=== PATIENT | female | born 1980 | race Caucasian/White ===

== ENCOUNTER 2016-12-10 13:54 | Emergency (ER) | payer OTHER, MEDICAID | END 2016-12-10 14:04 | disposition left against medical advice (07) | DX: Z53.21 Procedure and treatment not carried out due to patient leaving prior to being seen by health care provider (principal) ==

== ENCOUNTER 2016-12-10 14:33 | Emergency (ER) | payer OTHER, MEDICAID ==
[2016-12-10 14:49] VITALS: BP 112/81; PULSE 80; RESP 14; TEMP 98.6; O2SAT 94
--- NOTE | 2016-12-10 15:26 | EDPHY ---
H & P Stated Complaint: Possible DVT Time Seen by Provider: 12/10/16 14:51 HPI/ROS: CHIEF COMPLAINT: Left leg swelling and purple when standing HISTORY OF PRESENT ILLNESS: Patient is a 36-year-old female who is well known to the department and is a very difficult patient. She is requesting an ultrasound of her left leg. She had hip surgery in left hip 3 weeks ago and was concerned today when she noticed some swelling and purple discoloration when she stood up. It resolved when she lies down. She also had some tingling. No hip pain. No back pain. No bowel or bladder abnormalities. She initially refused to triage. She refused vitals and the nursing examination to until an MD was in the room. When I entered the room she accused me immediately of not allowing her to go to the bathroom and asking if she me if I wanted her to pee in the bed. She would not answer my questions even when I placed them in writing. She repeated over and over how she was documenting everything for her family. REVIEW OF SYSTEMS: Constitutional: denies: chills, fever, recent illness, recent injury EENTM: denies: blurred vision, double vision, nose congestion Respiratory: denies: cough, shortness of breath Cardiac: denies: chest pain, irregular heart rate, lightheadedness, palpitations Gastrointestinal/Abdominal: denies: abdominal pain, diarrhea, nausea, vomiting, blood streaked stools Genitourinary: denies: dysuria, frequency, hematuria, pain Musculoskeletal: See HPI Skin: denies: lesions, rash, jaundice, bruising Neurological: denies: headache, numbness, paresthesia, tingling, dizziness, weakness Hematologic/Lymphatic: denies: blood clots, easy bleeding, easy bruising Immunologic/allergic: denies: HIV/AIDS, transplant EXAM: GENERAL: Well-appearing, well-nourished and in no acute distress. HEAD: Atraumatic, normocephalic. EYES: Pupils equal round and reactive to light, extraocular movements intact, sclera anicteric, conjunctiva are normal. ENT: TMs normal, nares patent, oropharynx clear without exudates. Moist mucous membranes. NECK: Normal range of motion, supple without lymphadenopathy or JVD. LUNGS: Breath sounds clear to auscultation bilaterally and equal. No wheezes rales or rhonchi. HEART: Regular rate and rhythm without murmurs, rubs or gallops. ABDOMEN: Soft, nontender, normoactive bowel sounds. No guarding, no rebound. No masses appreciated. BACK: No CVA tenderness, no spinal tenderness, step-offs or deformities EXTREMITIES: Normal range of motion, no pitting or edema. No clubbing or cyanosis. NEUROLOGICAL: Cranial nerves II through XII grossly intact. Normal speech, normal gait. 5/5 strength, normal movement in all extremities, normal sensation PSYCH: Normal mood, normal affect. SKIN: Warm, dry, normal turgor, no visible rashes or lesions. Source: Patient Exam Limitations: No limitations - Personal History LMP (Females 10-55): 1-7 Days Ago Current Tetanus/Diphtheria Vaccine: Yes Current Tetanus Diphtheria and Acellular Pertussis (TDAP): Yes Tetanus Vaccine Date: 05/2012 - Medical/Surgical History Hx Asthma: Yes Hx Chronic Respiratory Disease: No Hx Diabetes: No Hx Cardiac Disease: No Hx Renal Disease: No Hx Cirrhosis: No Hx Alcoholism: No Hx HIV/AIDS: No Hx Splenectomy or Spleen Trauma: No Other PMH: REPORTS CHEMOTHERAPY, REPORTS HEARING IMPAIRMENT. 1 previous laparoscopic surgery for "endometrioma" without endometriosis. Negative cholecystectomy. History of ovarian cysts. "eye disease"; PTSD. anxiety, anemia. PSH: ankle sx 2001, ovarian cyst sx 2007 - Family History Significant Family History: Hypertension - Social History Smoking Status: Never smoked Alcohol Use: Sober Drug Use: None Constitutional: Initial Vital Signs Temperature (C) 37.0 C 12/10/16 14:33 Heart Rate 80 12/10/16 14:33 Respiratory Rate 14 12/10/16 14:33 Blood Pressure 112/81 H 12/10/16 14:33 O2 Sat (%) 94 12/10/16 14:33 O2 Delivery Mode Room Air Allergies/Adverse Reactions: telithromycin [From KETEK] Allergy (Mild, Verified 04/22/16 21:03) Itching azithromycin [From Zithromax] Allergy (Verified 04/22/16 21:03) baclofen Allergy (Verified 04/22/16 21:05) carbamazepine [Carbamazepine] Allergy (Verified 04/22/16 21:03) fluvoxamine maleate [From Luvox] Allergy (Verified 04/22/16 21:05) latex [Latex] Allergy (Verified 04/22/16 21:03) Macrolide Antibiotics Allergy (Verified 04/22/16 21:03) promethazine HCl [From Phenergan] Allergy (Verified 04/22/16 21:03) ANTI PSYCHOTICS Allergy (Uncoded 04/22/16 21:05) TRILOPHAN Allergy (Uncoded 04/22/16 21:05) Home Medications: Medication Instructions Recorded Vistaril 09/30/15 Medical Decision Making - Diagnostics Imaging: Study: Ultrasound of the: Left lower extremity Indication: swelling and discoloration Results: US scan of the left lower extremity was obtained. The results of the study are negative for DVT. The study was read by the radiologist, Dr. Bry Valdez. I viewed the images myself on the PACS system. ED Course/Re-evaluation: The patient has been very difficult. She would not allow me to completely examine her leg but I do not see any swelling or edema. She states that her doctor told her to come and get an ultrasound. She is very combative and repeatedly wants to yell at us about how she was not allowed to go to the bathroom. She initially refused drop forge operator when she entered the room as well but after some further conversation through writing she agreed. Security guards have been called to her room already 3 times. She is extremely belligerent and demeaning to staff. Interestingly the patient was able to converse normally with the electrophysiology tech without any difficulty hearing and without writing. 3:40 p.m. the patient began throwing things across the room while interacting with nursing staff. Were able to calm her down. 3:50 p.m. we discussed the ultrasound results. The patient again was very confrontational. She seemed relieved that the results were negative but wanted to know why her leg was Swollen and discolored. Currently there is no swelling or discoloration. she will not allow further examination so it is impossible to tell. Suspect that it is somewhat positional. Also in the pictures she showed me she had a tight carrington wrap around her leg that seem to be contributing to the discoloration in her foot. It did not look edematous. I recommended that she follow up with her orthopedist who performed the surgery. She has normal coloration and pulses currently. 4:02 p.m. the patient continued to be aggressive and verbally abusive to staff and myself. She will not allow further workup or treatment. Her vital signs are stable. She does not have any obvious emergent condition and will not allow further evaluation. At this point we had security risk analyst her out. Differential Diagnosis: Partial list of the Differential diagnosis considered include but were not limited to; DVT, hematoma, compression dressing complication and although unlikely based on the history and physical exam, I also considered infection, obstruction, ischemia. Departure - Departure Disposition: Home, Routine, Self-Care Clinical Impression: Leg swelling Condition: Good Instructions: Leg Edema (ED) Referrals: Patient,NotPresent [Primary Care Provider] - As per Instructions
== END 2016-12-10 16:03 | disposition home or self-care (01) ==
LOC: EDUNIT#
DX: M79.89 Other specified soft tissue disorders (principal); J45.909 Unspecified asthma, uncomplicated; Z91.040 Latex allergy status

== ENCOUNTER 2017-03-25 15:26 | Emergency (ER) | payer OTHER, MEDICAID ==
[2017-03-25 15:34] VITALS: RESP 16; TEMP 97.7
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
[2017-03-25 20:09] VITALS: BP 137/76; PULSE 77; O2SAT 96
== END 2017-03-25 20:10 | disposition home or self-care (01) ==
DX: F41.9 Anxiety disorder, unspecified (principal); F60.9 Personality disorder, unspecified; J45.909 Unspecified asthma, uncomplicated; Z91.040 Latex allergy status

== ENCOUNTER 2017-03-28 19:33 | Emergency (ER) | payer OTHER, MEDICAID ==
[2017-03-28] MEDS ORDERED: LORAZEPAM 1 MG PREPACK#4 BTL TAKEHOME ONE (21:16)
[2017-03-28 21:17] VITALS: BP 116/76; PULSE 76; RESP 16; TEMP 98.1; O2SAT 96
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
== END 2017-03-28 21:28 | disposition home or self-care (01) ==
DX: F41.9 Anxiety disorder, unspecified (principal); J45.909 Unspecified asthma, uncomplicated; Z91.040 Latex allergy status

== ENCOUNTER 2017-05-15 10:51 | Emergency (ER) | payer OTHER, MEDICAID ==
--- NOTE | 2017-05-15 11:34 | EDPHY ---
H & P HPI/ROS: CC: Wants help arranging mental health care in [place] HPI: Ms. Sandoval is a 37 year old female known to me from previous ED visits. She has a reported history of anxiety, PTSD, and deafness. She presents today stating that she has been unable to arrange an appointment at [facility] because [facility] reportedly told them that she is not deaf. She is asking for a [facility] service center representative to contact [facility] and tell them that she needs an teachers' aide. She makes no physical complaints to me. ROS: Refuses to provide. - Personal History Tetanus Vaccine Date: 05/2012 - Medical/Surgical History Hx Asthma: Yes Hx Chronic Respiratory Disease: No Hx Diabetes: No Hx Cardiac Disease: No Hx Renal Disease: No Hx Cirrhosis: No Hx Alcoholism: No Hx HIV/AIDS: No Hx Splenectomy or Spleen Trauma: No Other PMH: REPORTS CHEMOTHERAPY, REPORTS HEARING IMPAIRMENT. 1 previous laparoscopic surgery for "endometrioma" without endometriosis. Negative cholecystectomy. History of ovarian cysts. "eye disease"; PTSD. anxiety, anemia. PSH: ankle sx 2001, ovarian cyst sx 2007 - Social History Smoking Status: Never smoked - Physical Exam Exam: Patient not examined. She is agitated, refusing exam. Allergies/Adverse Reactions: telithromycin [From KETEK] Allergy (Mild, Verified 04/22/16 21:03) Itching azithromycin [From Zithromax] Allergy (Verified 04/22/16 21:03) baclofen Allergy (Verified 04/22/16 21:05) carbamazepine [Carbamazepine] Allergy (Verified 04/22/16 21:03) fluvoxamine maleate [From Luvox] Allergy (Verified 04/22/16 21:05) latex [Latex] Allergy (Verified 04/22/16 21:03) Macrolide Antibiotics Allergy (Verified 04/22/16 21:03) promethazine HCl [From Phenergan] Allergy (Verified 04/22/16 21:03) ANTI PSYCHOTICS Allergy (Uncoded 04/22/16 21:05) TRILOPHAN Allergy (Uncoded 04/22/16 21:05) Home Medications: Medication Instructions Recorded Vistaril 09/30/15 LORazepam [Ativan] 1 mg PO BID PRN #4 tablet 03/28/17 Medical Decision Making ED Course/Re-evaluation: Patient requesting [facility] service center representative contact mental health services in [place]. She states that she has been unable to arrange an appointment because they do not believe that she is deaf and they won't provide an automation lead for the hearing impaired. She states that [facility] is responsible for this situation. I did speak with a gentleman at [facility], his name was provided by Ms. Sandoval. He informed me that she is not eligible for services through their facility because she does not live in [facility]. They do provide services to the hearing impaired from throughout [place], no specific county of residency required, but he states that she is not eligible for these services. I have not identified an emergency medical condition that requires further evaluation. An automation lead (sign language) was present throughout my time with Ms. Sandoval. Ms. Sandoval was verbalizing but at one point asked if she could write. She was told that this would be fine, but she became more agitated. No further emergency department care was offered to her. Departure - Departure Disposition: Home, Routine, Self-Care Clinical Impression: Anxiety Condition: Good Instructions: Anxiety (ED) Additional Instructions: I have contacted [facility] for you, in your presence, and recommended that they provide an appropriate automation lead. I hope that this is helpful in terms of you being able to arrange an appointment with them. Please follow up with [facility] or [facility] for additional care. call [phone] I offered you some medication to help with today's anxiety, which you have refused. You can return to the emergency department for care if needed. Referrals: [facility] [Outside] - As per Instructions
== END 2017-05-15 12:08 | disposition home or self-care (01) ==
DX: F41.9 Anxiety disorder, unspecified (principal); J45.909 Unspecified asthma, uncomplicated

== ENCOUNTER 2017-08-26 16:05 | Emergency (ER) | payer OTHER, MEDICAID ==
--- NOTE | 2017-08-27 17:32 | ASDISCHSUM ---
Discharge Information Plan Status:Home with No Needs Medically Cleared to Leave: Discharge Date:08/26/2017 04:50 PM CM D/C Disposition:Left Without Being Seen ADT D/C Disposition:Left Without Being Seen Projected Discharge Date:08/26/2017 04:50 PM Transportation at D/C:Self Discharge Delay Reason: Follow-Up Date:08/26/2017 04:50 PM Discharge Slot: Final Diagnosis: Placement Information Patient Contact Information Contact Name:LEVI Relationship:Mother Address: Work Phone: City: [facility] Phone: State/[place] Code: Email: Financial Information Financial Class: Primary Plan Desc:MEDICARE OUTPATIENT Primary Plan Number:[id number] Secondary Plan Desc:MEDICAID HEALTH FIRST [place] Secondary Plan Number:[id number] Assessment Information [facility] CM Progress Note CM Note CM Note Notes: Patient presented to the ED through walk-in triage. Per registration staff and management lecturer, patient was requesting ASL assistance and was otherwise not providing any information as to why she wanted to be seen. Jose with registration contacted [facility] [employer] off-hours and was unable to get through to anyone. Jose also called the 15/05 ASL # and submitted a request for an survival specialist to come and assist the patient. The nearest survival specialist through [employer] ( ) would be coming from the [facility]. Patient continued to sit in registration desk area. Patient is very familiar with this ED and the triage process (patient has received specific guidelines in the past from our Risk Management, we presented these to her again during this visit but she said she could not read anything). Patient would not respond, engage or cooperate with any of our attempts to communicate to her that ASL was on their way and that she needed to take a seat in the waiting room as other people would need to check in at that registration desk. Patient was not providing any information to the management lecturer. Per Jose, while he was writing out that he had called ASL and they were about 45 minutes away, patient reportedly told him to stop writing and that she didn't want him to write anything. This CM was accompanied by security and went to speak to patient at the ED registration desk. We attempted to communicate that an manganese breaker was on her way to the hospital via hand writing (provided by security since patient has been known to have moments of being able to read hand-writing), and also verbal since patient has been known to be able to hear verbal communication at times in the past. This CM also used calm, non-threatening and generalized gesturing for her to join me in the waiting area. Patient was unable to read, hear or understand any communication attempts and was becoming escalated in her tone of voice and saying she was told by Martita Adame (Risk Management at [facility]) that I would be provided video ASL interpretive services and that we are not equipped to provided ADA services. Patient was asking us to call 911 so she can go to a different hospital, even though patient had her phone and it appeared to be recording the conversation and interactions taking place. We attempted to communicate that she is not allowed to record any audio or visual recordings while in the ED. Patient persisted that she could not understand any of our communication attempts. Per some of the guidelines set forth with our Risk Management team, it is clearly stated: - You need to check in at the credit front office developer. You may be asked to wait in the waiting room if the desk is busy with other patients and you do not have a life threatening emergency. The waiting room is a public area. You are expected to act appropriately. Do not yell or scream or discuss the details of your case in this area. - If you do agree to be triaged, you will be asked to leave the premises. Behavior Expectations: - As a patient, its your responsibility to : - Communicate in a calm and respectful manner. - Communicate to us all of your symptoms when you present to the ED. It is difficult for us to properly examine and treat you if you do not share your symptoms at the beginning of your visit. - We request that you obtain permission from staff before recording or videotaping. - If you do not agree to follow the ED procedures outlined above so that we can examine you and provide care, we will discharge you and ask you to leave the premises. - If you do not leave the premises when requested, we will contact law enforcement. The above guidelines and behavior expectations were chosen out of relevancy to the current visit but there are additional guidelines that may or may not pertain to this patient's behavior during this visit. Copies of the complete guidelines and the letter sent to the patient when guidelines were established, are kept with Security, the ED reel cutter, ED Case Management, or Risk Management. Due to the patient not following the set guidelines, it was decided by the ED reel cutter Ventura that Jose could call [employer] to potentially assist with escorting patient off premises in the case she continues to not cooperate per guidelines. A [employer] Officer arrived to the ED waiting area and the security professional Yasir was simply explaining why we called [employer]. However the patient became upset and started hyperventilating, talking loudly and aggressively saying "Why did you call the police? I was just sitting there." This CM attempted to calm the patient down and have her sit down in the waiting room and take deep breaths but ultimately the patient left the ED on her own accord and was seen walking south through the parking lot toward [facility] with her therapy dog. At about 1700 this CM received a call at ext. [phone] from "[employer]" that Dalia was utilizing in order to communicate over the phone. Apparently the patient texts or types into the computer what she wants to say then the person on the phone repeats it to the person on the receiving and then the aquatic life laborer responds verbally and then the survival specialist types/texts back to the patient. The patient asked "what crime did I commit for you to call the police?" This CM responded "You were not following the guidelines that we have set with you through our Risk Management department and you were not responding to any communication attempts to have you move from the registration desk to the waiting area." This dialogue went back and forth for a couple of minutes. This CM repeatedly responded "You are more than welcome to return to the ED. We have an manganese breaker on their way." The patient continued to respond with the same question in a pressured, long-winded, perseverating manner. This CM ultimately had to unilaterally end the call as their were other patients in the ED requesting CM assistance. The patient continued to call back to the ED several times through the [employer] service and asked to speak to the reel cutter at one time. The survival specialist from [address] [place] [address] [email or web address], Brent Patterson, arrived to the ED at about 1730 and waited patiently in the ED waiting area. The patient was informed during one of her calls that if she wanted to return to the ED to be seen, the survival specialist was now available and she would wait until 1800. Patient returned to the ED at about 1757. 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
--- NOTE | 2017-08-27 17:32 | ASDISCHSUM ---
Discharge Information Plan Status:Home with No Needs Medically Cleared to Leave: Discharge Date:08/26/2017 04:50 PM CM D/C Disposition:Left Without Being Seen ADT D/C Disposition:Left Without Being Seen Projected Discharge Date:08/26/2017 04:50 PM Transportation at D/C:Self Discharge Delay Reason: Follow-Up Date:08/26/2017 04:50 PM Discharge Slot: Final Diagnosis: Placement Information Patient Contact Information Contact Name:LEVI Relationship:Mother Address: Work Phone: City: [facility] Phone: State[email or web address] Code: Email: Financial Information Financial Class: Primary Plan Desc:MEDICARE OUTPATIENT Primary Plan Number:[id number] Secondary Plan Desc:MEDICAID HEALTH FIRST [place] OP Secondary Plan Number:[id number] Assessment Information [facility] CM Progress Note CM Note CM Note Notes: Patient presented to the ED through walk-in triage. Per registration staff and supervisor records change, patient was requesting ASL assistance and was otherwise not providing any information as to why she wanted to be seen. Jose with registration contacted [facility] [employer] off-hours and was unable to get through to anyone. Jose also called the 15/05 ASL # and submitted a request for an health science specialist to come and assist the patient. The nearest health science specialist through [employer] ( ) would be coming from the [facility]. Patient continued to sit in registration desk area. Patient is very familiar with this ED and the triage process (patient has received specific guidelines in the past from our Risk Management, we presented these to her again during this visit but she said she could not read anything). Patient would not respond, engage or cooperate with any of our attempts to communicate to her that ASL was on their way and that she needed to take a seat in the waiting room as other people would need to check in at that registration desk. Patient was not providing any information to the supervisor records change. Per Jose, while he was writing out that he had called ASL and they were about 45 minutes away, patient reportedly told him to stop writing and that she didn't want him to write anything. This CM was accompanied by security and went to speak to patient at the ED registration desk. We attempted to communicate that an geriatric physician was on her way to the hospital via hand writing (provided by security since patient has been known to have moments of being able to read hand-writing), and also verbal since patient has been known to be able to hear verbal communication at times in the past. This CM also used calm, non-threatening and generalized gesturing for her to join me in the waiting area. Patient was unable to read, hear or understand any communication attempts and was becoming escalated in her tone of voice and saying she was told by Martita Adame (Risk Management at [facility]) that I would be provided video ASL interpretive services and that we are not equipped to provided ADA services. Patient was asking us to call 911 so she can go to a different hospital, even though patient had her phone and it appeared to be recording the conversation and interactions taking place. We attempted to communicate that she is not allowed to record any audio or visual recordings while in the ED. Patient persisted that she could not understand any of our communication attempts. Per some of the guidelines set forth with our Risk Management team, it is clearly stated: - You need to check in at the lockstitch front edge tape sewer. You may be asked to wait in the waiting room if the desk is busy with other patients and you do not have a life threatening emergency. The waiting room is a public area. You are expected to act appropriately. Do not yell or scream or discuss the details of your case in this area. - If you do agree to be triaged, you will be asked to leave the premises. Behavior Expectations: - As a patient, its your responsibility to : - Communicate in a calm and respectful manner. - Communicate to us all of your symptoms when you present to the ED. It is difficult for us to properly examine and treat you if you do not share your symptoms at the beginning of your visit. - We request that you obtain permission from staff before recording or videotaping. - If you do not agree to follow the ED procedures outlined above so that we can examine you and provide care, we will discharge you and ask you to leave the premises. - If you do not leave the premises when requested, we will contact law enforcement. The above guidelines and behavior expectations were chosen out of relevancy to the current visit but there are additional guidelines that may or may not pertain to this patient's behavior during this visit. Copies of the complete guidelines and the letter sent to the patient when guidelines were established, are kept with Security, the ED brush sander, ED Case Management, or Risk Management. Due to the patient not following the set guidelines, it was decided by the ED brush sander Ventura that Jose could call [employer] to potentially assist with escorting patient off premises in the case she continues to not cooperate per guidelines. A [employer] Officer arrived to the ED waiting area and the information security specialist Yasir was simply explaining why we called [employer]. However the patient became upset and started hyperventilating, talking loudly and aggressively saying "Why did you call the police? I was just sitting there." This CM attempted to calm the patient down and have her sit down in the waiting room and take deep breaths but ultimately the patient left the ED on her own accord and was seen walking south through the parking lot toward [facility] with her therapy dog. At about 1700 this CM received a call at ext. [phone] from "[employer]" that Dalia was utilizing in order to communicate over the phone. Apparently the patient texts or types into the computer what she wants to say then the person on the phone repeats it to the person on the receiving and then the analytics lead responds verbally and then the health science specialist types/texts back to the patient. The patient asked "what crime did I commit for you to call the police?" This CM responded "You were not following the guidelines that we have set with you through our Risk Management department and you were not responding to any communication attempts to have you move from the registration desk to the waiting area." This dialogue went back and forth for a couple of minutes. This CM repeatedly responded "You are more than welcome to return to the ED. We have an geriatric physician on their way." The patient continued to respond with the same question in a pressured, long-winded, perseverating manner. This CM ultimately had to unilaterally end the call as their were other patients in the ED requesting CM assistance. The patient continued to call back to the ED several times through the [employer] service and asked to speak to the brush sander at one time. The health science specialist from [address] [place] [address] [email or web address], Brent Patterson, arrived to the ED at about 1730 and waited patiently in the ED waiting area. The patient was informed during one of her calls that if she wanted to return to the ED to be seen, the health science specialist was now available and she would wait until 1800. Patient returned to the ED at about 1757. 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
--- NOTE | 2017-08-27 17:32 | ASDISCHSUM ---
Discharge Information Plan Status:Home with No Needs Medically Cleared to Leave: Discharge Date:08/26/2017 04:50 PM CM D/C Disposition:Left Without Being Seen ADT D/C Disposition:Left Without Being Seen Projected Discharge Date:08/26/2017 04:50 PM Transportation at D/C:Self Discharge Delay Reason: Follow-Up Date:08/26/2017 04:50 PM Discharge Slot: Final Diagnosis: Placement Information Patient Contact Information Contact Name:LEVI Relationship:Mother Address: Work Phone: City: [facility] Phone: State/[place] Code: Email: Financial Information Financial Class: Primary Plan Desc:MEDICARE OUTPATIENT Primary Plan Number:[id number] Secondary Plan Desc:MEDICAID HEALTH FIRST [place] OP Secondary Plan Number:[id number] Assessment Information [facility] CM Progress Note CM Note CM Note Notes: Patient presented to the ED through walk-in triage. Per registration staff and skiagrapher, patient was requesting ASL assistance and was otherwise not providing any information as to why she wanted to be seen. Jose with registration contacted [facility] [employer] off-hours and was unable to get through to anyone. Jose also called the 15/05 ASL # and submitted a request for an cloth booker to come and assist the patient. The nearest cloth booker through [employer] ( ) would be coming from the [facility]. Patient continued to sit in registration desk area. Patient is very familiar with this ED and the triage process (patient has received specific guidelines in the past from our Risk Management, we presented these to her again during this visit but she said she could not read anything). Patient would not respond, engage or cooperate with any of our attempts to communicate to her that ASL was on their way and that she needed to take a seat in the waiting room as other people would need to check in at that registration desk. Patient was not providing any information to the skiagrapher. Per Jose, while he was writing out that he had called ASL and they were about 45 minutes away, patient reportedly told him to stop writing and that she didn't want him to write anything. This CM was accompanied by security and went to speak to patient at the ED registration desk. We attempted to communicate that an ammunition assembly i laborer was on her way to the hospital via hand writing (provided by security since patient has been known to have moments of being able to read hand-writing), and also verbal since patient has been known to be able to hear verbal communication at times in the past. This CM also used calm, non-threatening and generalized gesturing for her to join me in the waiting area. Patient was unable to read, hear or understand any communication attempts and was becoming escalated in her tone of voice and saying she was told by Martita Adame (Risk Management at [facility]) that I would be provided video ASL interpretive services and that we are not equipped to provided ADA services. Patient was asking us to call 911 so she can go to a different hospital, even though patient had her phone and it appeared to be recording the conversation and interactions taking place. We attempted to communicate that she is not allowed to record any audio or visual recordings while in the ED. Patient persisted that she could not understand any of our communication attempts. Per some of the guidelines set forth with our Risk Management team, it is clearly stated: - You need to check in at the front office manager. You may be asked to wait in the waiting room if the desk is busy with other patients and you do not have a life threatening emergency. The waiting room is a public area. You are expected to act appropriately. Do not yell or scream or discuss the details of your case in this area. - If you do agree to be triaged, you will be asked to leave the premises. Behavior Expectations: - As a patient, its your responsibility to : - Communicate in a calm and respectful manner. - Communicate to us all of your symptoms when you present to the ED. It is difficult for us to properly examine and treat you if you do not share your symptoms at the beginning of your visit. - We request that you obtain permission from staff before recording or videotaping. - If you do not agree to follow the ED procedures outlined above so that we can examine you and provide care, we will discharge you and ask you to leave the premises. - If you do not leave the premises when requested, we will contact law enforcement. The above guidelines and behavior expectations were chosen out of relevancy to the current visit but there are additional guidelines that may or may not pertain to this patient's behavior during this visit. Copies of the complete guidelines and the letter sent to the patient when guidelines were established, are kept with Security, the ED protein chemist, ED Case Management, or Risk Management. Due to the patient not following the set guidelines, it was decided by the ED protein chemist Ventura that Jose could call [employer] to potentially assist with escorting patient off premises in the case she continues to not cooperate per guidelines. A [employer] Officer arrived to the ED waiting area and the database security administrator Yasir was simply explaining why we called [employer]. However the patient became upset and started hyperventilating, talking loudly and aggressively saying "Why did you call the police? I was just sitting there." This CM attempted to calm the patient down and have her sit down in the waiting room and take deep breaths but ultimately the patient left the ED on her own accord and was seen walking south through the parking lot toward [facility] with her therapy dog. At about 1700 this CM received a call at ext. [phone] from "[employer]" that Dalia was utilizing in order to communicate over the phone. Apparently the patient texts or types into the computer what she wants to say then the person on the phone repeats it to the person on the receiving and then the credit processor responds verbally and then the cloth booker types/texts back to the patient. The patient asked "what crime did I commit for you to call the police?" This CM responded "You were not following the guidelines that we have set with you through our Risk Management department and you were not responding to any communication attempts to have you move from the registration desk to the waiting area." This dialogue went back and forth for a couple of minutes. This CM repeatedly responded "You are more than welcome to return to the ED. We have an ammunition assembly i laborer on their way." The patient continued to respond with the same question in a pressured, long-winded, perseverating manner. This CM ultimately had to unilaterally end the call as their were other patients in the ED requesting CM assistance. The patient continued to call back to the ED several times through the [employer] service and asked to speak to the protein chemist at one time. The cloth booker from [address] [place] [address] [employer], Brent Patterson, arrived to the ED at about 1730 and waited patiently in the ED waiting area. The patient was informed during one of her calls that if she wanted to return to the ED to be seen, the cloth booker was now available and she would wait until 1800. Patient returned to the ED at about 1757. 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
== END 2017-08-26 16:50 | disposition left against medical advice (07) ==
DX: Z53.21 Procedure and treatment not carried out due to patient leaving prior to being seen by health care provider (principal)

== ENCOUNTER 2017-08-26 18:03 | Emergency (ER) | payer OTHER, MEDICAID ==
--- NOTE | 2017-08-26 18:17 | EDPHY ---
HPI/HX/ROS/PE/MDM Narrative: CHIEF COMPLAINT:panic attack, chest pain HPI: The patient is a 37-year-old female who is well known to this ED. She initially presented to the ED for same approximately 1-2 hours ago but refused to cooperate with triage process and was quite disruptive. She was ultimately escorted off facility by PD and security. She now returns, complaining of having a panic attack and having chest pain. This was all the history I could obtain from her as she would not stop talking about how she was being punished for sitting in the wrong chair. REVIEW OF SYSTEMS: Unable to obtain. PMH:Includes PTSD, anxiety SOCIAL HISTORY:Unable to verify with patient. PHYSICAL EXAM: Patient is sitting in corner of the room on the floor. She refuses to answer questions and is hyperventilating. ED Course: Per established guidelines that have been worked out with the patient and [facility] prior to this visit, I entered the exam room with the patient's nurse and an rate supervisor. The rate supervisor confirms to me that the patient does not appear to understand ASL, but she continued translating during the encounter. The patient was provided with pen and paper to assist with communication. Her service dog is sitting on the bed. As stated in the HPI, the patient refused to cooperate by getting up from position in corner of room or answering questions, which prohibits my ability to conduct a complete medical screening examnination. I asked her if she would like any medication to help reduce her anxiety and she did answer this question, saying "I don't want you to give me any medications!!" In reviewing the hospital care plan for this patient, she is clearly not following a number of the guidelines that have been set up for her and listed on a care plan sheet that I am holding. Therefore, I have given her a pre- printed piece of paper to read informing her that she is not following guidelines and that she needs to be calm etc. in order for us to provide the emergency care she is apparently seeking. I informed her that I cannot examine her because she is unwilling to cooperate in allowing the examination, and her behavior is limiting our ability to provide care. I informed her at this time that I would give her a few minutes to try and calm down and comply with the care plan. 18:40: Patient standing in other corner of room. She continues to refuse to sit down or allow me to examine her. She states she is recording interaction despite my request for her not to. She tells me "I hope you have a good malpractice anesthesia attending because you just publicly humiliated me!" Again, this entire interaction was facilitated via ASL library attendant, despite the fact that patient is clearly able to hear and understand me. She is responding verbally to questions I have asked verbally. I explained to her that we are trying to help her and that it is my job to examine her and conduct a medical screening exam, but that she needs to cooperate in order for me to complete the exam. She is being verbally abusive to staff and myself. I informed her I would give her one more chance to comply with hospital policy and allow me to examine her, and that I would return in a few minutes. 18:49: Patient still standing in corner of room, writing in her notebook. She is yelling at myself and staff and continues to talk about her anger over previous incident rather than her current symptoms or situation. Per care plan already established with the patient, I gave her the pre-printed instructions that explain she has been given her second warning and would now be discharged. The patient does not appear to have a medical emergency - she is speaking in very long sentences without apparent SOB, she is not pale and she appears to be clearly quite oriented and coherent based on my observations and interactions with her. I am unable to perform further workup secondary to her refusal to follow policies and our requests. Entire interaction was performed in presence of nurse Melani Nagy and rate supervisor. I spent probably 40 minutes of uninterrupted time on this patient, including attempting to communicate with the patient, reviewing her medical history and hospital policy and counseling staff who were very upset about their treatment by the patient. Every attempt was made to assist her with her stated disabilities. This was a very difficult patient encounter for myself and other ER staff - at least one of whom was near tears secondary to the patient's treatment of him. The patient's behavior and actions created a significant barrier to us providing her with the requested care she has come to the ER to receive. General Time Seen by Provider: 08/26/17 18:07 Allergies/Adverse Reactions: telithromycin [From KETEK] Allergy (Mild, Verified 04/22/16 21:03) Itching azithromycin [From Zithromax] Allergy (Verified 04/22/16 21:03) baclofen Allergy (Verified 04/22/16 21:05) carbamazepine [Carbamazepine] Allergy (Verified 04/22/16 21:03) fluvoxamine maleate [From Luvox] Allergy (Verified 04/22/16 21:05) latex [Latex] Allergy (Verified 04/22/16 21:03) Macrolide Antibiotics Allergy (Verified 04/22/16 21:03) promethazine HCl [From Phenergan] Allergy (Verified 04/22/16 21:03) ANTI PSYCHOTICS Allergy (Uncoded 04/22/16 21:05) TRILOPHAN Allergy (Uncoded 04/22/16 21:05) Home Medications: Medication Instructions Recorded Vistaril 09/30/15 LORazepam [Ativan] 1 mg PO BID PRN #4 tablet 03/28/17 Departure - Departure Disposition: Against Medical Advice Clinical Impression: Anxiety Condition: Good Referrals: NONE *PRIMARY CARE P,. [Primary Care Provider] - As per Instructions
--- NOTE | 2017-08-26 18:17 | EDPHY ---
HPI/HX/ROS/PE/MDM Narrative: CHIEF COMPLAINT:panic attack, chest pain HPI: The patient is a 37-year-old female who is well known to this ED. She initially presented to the ED for same approximately 1-2 hours ago but refused to cooperate with triage process and was quite disruptive. She was ultimately escorted off facility by PD and security. She now returns, complaining of having a panic attack and having chest pain. This was all the history I could obtain from her as she would not stop talking about how she was being punished for sitting in the wrong chair. REVIEW OF SYSTEMS: Unable to obtain. PMH:Includes PTSD, anxiety SOCIAL HISTORY:Unable to verify with patient. PHYSICAL EXAM: Patient is sitting in corner of the room on the floor. She refuses to answer questions and is hyperventilating. ED Course: Per established guidelines that have been worked out with the patient and [facility] prior to this visit, I entered the exam room with the patient's nurse and an irrigation laborer. The irrigation laborer confirms to me that the patient does not appear to understand ASL, but she continued translating during the encounter. The patient was provided with pen and paper to assist with communication. Her service dog is sitting on the bed. As stated in the HPI, the patient refused to cooperate by getting up from position in corner of room or answering questions, which prohibits my ability to conduct a complete medical screening examnination. I asked her if she would like any medication to help reduce her anxiety and she did answer this question, saying "I don't want you to give me any medications!!" In reviewing the hospital care plan for this patient, she is clearly not following a number of the guidelines that have been set up for her and listed on a care plan sheet that I am holding. Therefore, I have given her a pre- printed piece of paper to read informing her that she is not following guidelines and that she needs to be calm etc. in order for us to provide the emergency care she is apparently seeking. I informed her that I cannot examine her because she is unwilling to cooperate in allowing the examination, and her behavior is limiting our ability to provide care. I informed her at this time that I would give her a few minutes to try and calm down and comply with the care plan. 18:40: Patient standing in other corner of room. She continues to refuse to sit down or allow me to examine her. She states she is recording interaction despite my request for her not to. She tells me "I hope you have a good malpractice attorney recruiter because you just publicly humiliated me!" Again, this entire interaction was facilitated via ASL calibration laboratory technician, despite the fact that patient is clearly able to hear and understand me. She is responding verbally to questions I have asked verbally. I explained to her that we are trying to help her and that it is my job to examine her and conduct a medical screening exam, but that she needs to cooperate in order for me to complete the exam. She is being verbally abusive to staff and myself. I informed her I would give her one more chance to comply with hospital policy and allow me to examine her, and that I would return in a few minutes. 18:49: Patient still standing in corner of room, writing in her notebook. She is yelling at myself and staff and continues to talk about her anger over previous incident rather than her current symptoms or situation. Per care plan already established with the patient, I gave her the pre-printed instructions that explain she has been given her second warning and would now be discharged. The patient does not appear to have a medical emergency - she is speaking in very long sentences without apparent SOB, she is not pale and she appears to be clearly quite oriented and coherent based on my observations and interactions with her. I am unable to perform further workup secondary to her refusal to follow policies and our requests. Entire interaction was performed in presence of nurse Melani Nagy and irrigation laborer. I spent probably 40 minutes of uninterrupted time on this patient, including attempting to communicate with the patient, reviewing her medical history and hospital policy and counseling staff who were very upset about their treatment by the patient. Every attempt was made to assist her with her stated disabilities. This was a very difficult patient encounter for myself and other ER staff - at least one of whom was near tears secondary to the patient's treatment of him. The patient's behavior and actions created a significant barrier to us providing her with the requested care she has come to the ER to receive. General Time Seen by Provider: 08/26/17 18:07 Allergies/Adverse Reactions: telithromycin [From KETEK] Allergy (Mild, Verified 04/22/16 21:03) Itching azithromycin [From Zithromax] Allergy (Verified 04/22/16 21:03) baclofen Allergy (Verified 04/22/16 21:05) carbamazepine [Carbamazepine] Allergy (Verified 04/22/16 21:03) fluvoxamine maleate [From Luvox] Allergy (Verified 04/22/16 21:05) latex [Latex] Allergy (Verified 04/22/16 21:03) Macrolide Antibiotics Allergy (Verified 04/22/16 21:03) promethazine HCl [From Phenergan] Allergy (Verified 04/22/16 21:03) ANTI PSYCHOTICS Allergy (Uncoded 04/22/16 21:05) TRILOPHAN Allergy (Uncoded 04/22/16 21:05) Home Medications: Medication Instructions Recorded Vistaril 09/30/15 LORazepam [Ativan] 1 mg PO BID PRN #4 tablet 03/28/17 Departure - Departure Disposition: Against Medical Advice Clinical Impression: Anxiety Condition: Good Referrals: NONE *PRIMARY CARE P,. [Primary Care Provider] - As per Instructions
--- NOTE | 2017-08-26 18:17 | EDPHY ---
HPI/HX/ROS/PE/MDM Narrative: CHIEF COMPLAINT:panic attack, chest pain HPI: The patient is a 37-year-old female who is well known to this ED. She initially presented to the ED for same approximately 1-2 hours ago but refused to cooperate with triage process and was quite disruptive. She was ultimately escorted off facility by PD and security. She now returns, complaining of having a panic attack and having chest pain. This was all the history I could obtain from her as she would not stop talking about how she was being punished for sitting in the wrong chair. REVIEW OF SYSTEMS: Unable to obtain. PMH:Includes PTSD, anxiety SOCIAL HISTORY:Unable to verify with patient. PHYSICAL EXAM: Patient is sitting in corner of the room on the floor. She refuses to answer questions and is hyperventilating. ED Course: Per established guidelines that have been worked out with the patient and [facility] prior to this visit, I entered the exam room with the patient's nurse and an athlete manager. The athlete manager confirms to me that the patient does not appear to understand ASL, but she continued translating during the encounter. The patient was provided with pen and paper to assist with communication. Her service dog is sitting on the bed. As stated in the HPI, the patient refused to cooperate by getting up from position in corner of room or answering questions, which prohibits my ability to conduct a complete medical screening examnination. I asked her if she would like any medication to help reduce her anxiety and she did answer this question, saying "I don't want you to give me any medications!!" In reviewing the hospital care plan for this patient, she is clearly not following a number of the guidelines that have been set up for her and listed on a care plan sheet that I am holding. Therefore, I have given her a pre- printed piece of paper to read informing her that she is not following guidelines and that she needs to be calm etc. in order for us to provide the emergency care she is apparently seeking. I informed her that I cannot examine her because she is unwilling to cooperate in allowing the examination, and her behavior is limiting our ability to provide care. I informed her at this time that I would give her a few minutes to try and calm down and comply with the care plan. 18:40: Patient standing in other corner of room. She continues to refuse to sit down or allow me to examine her. She states she is recording interaction despite my request for her not to. She tells me "I hope you have a good malpractice cytotechnologist/cytology supervisor because you just publicly humiliated me!" Again, this entire interaction was facilitated via ASL script editor, despite the fact that patient is clearly able to hear and understand me. She is responding verbally to questions I have asked verbally. I explained to her that we are trying to help her and that it is my job to examine her and conduct a medical screening exam, but that she needs to cooperate in order for me to complete the exam. She is being verbally abusive to staff and myself. I informed her I would give her one more chance to comply with hospital policy and allow me to examine her, and that I would return in a few minutes. 18:49: Patient still standing in corner of room, writing in her notebook. She is yelling at myself and staff and continues to talk about her anger over previous incident rather than her current symptoms or situation. Per care plan already established with the patient, I gave her the pre-printed instructions that explain she has been given her second warning and would now be discharged. The patient does not appear to have a medical emergency - she is speaking in very long sentences without apparent SOB, she is not pale and she appears to be clearly quite oriented and coherent based on my observations and interactions with her. I am unable to perform further workup secondary to her refusal to follow policies and our requests. Entire interaction was performed in presence of nurse Melani Nagy and athlete manager. I spent probably 40 minutes of uninterrupted time on this patient, including attempting to communicate with the patient, reviewing her medical history and hospital policy and counseling staff who were very upset about their treatment by the patient. Every attempt was made to assist her with her stated disabilities. This was a very difficult patient encounter for myself and other ER staff - at least one of whom was near tears secondary to the patient's treatment of him. The patient's behavior and actions created a significant barrier to us providing her with the requested care she has come to the ER to receive. General Time Seen by Provider: 08/26/17 18:07 Allergies/Adverse Reactions: telithromycin [From KETEK] Allergy (Mild, Verified 04/22/16 21:03) Itching azithromycin [From Zithromax] Allergy (Verified 04/22/16 21:03) baclofen Allergy (Verified 04/22/16 21:05) carbamazepine [Carbamazepine] Allergy (Verified 04/22/16 21:03) fluvoxamine maleate [From Luvox] Allergy (Verified 04/22/16 21:05) latex [Latex] Allergy (Verified 04/22/16 21:03) Macrolide Antibiotics Allergy (Verified 04/22/16 21:03) promethazine HCl [From Phenergan] Allergy (Verified 04/22/16 21:03) ANTI PSYCHOTICS Allergy (Uncoded 04/22/16 21:05) TRILOPHAN Allergy (Uncoded 04/22/16 21:05) Home Medications: Medication Instructions Recorded Vistaril 09/30/15 LORazepam [Ativan] 1 mg PO BID PRN #4 tablet 03/28/17 Departure - Departure Disposition: Against Medical Advice Clinical Impression: Anxiety Condition: Good Referrals: NONE *PRIMARY CARE P,. [Primary Care Provider] - As per Instructions
--- NOTE | 2017-08-27 17:48 | ASDISCHSUM ---
Discharge Information Plan Status:Home with No Needs Medically Cleared to Leave: Discharge Date:08/26/2017 06:55 PM CM D/C Disposition:Against Medical Advice ADT D/C Disposition:Against Medical Advice Projected Discharge Date:08/26/2017 06:55 PM Transportation at D/C:Self Discharge Delay Reason: Follow-Up Date:08/26/2017 06:55 PM Discharge Slot: Final Diagnosis: Placement Information Patient Contact Information Contact Name:LEVI Relationship:Mother Address: Work Phone: City: [facility] Phone: State/[employer] Code: Email: Financial Information Financial Class: Primary Plan Desc:MEDICARE OUTPATIENT Primary Plan Number:[id number] Secondary Plan Desc:MEDICAID HEALTH FIRST FUNERAL PRE ARRANGEMENT COUNSELOR Secondary Plan Number:[id number] Assessment Information Intervention Information
--- NOTE | 2017-08-27 17:48 | ASDISCHSUM ---
Discharge Information Plan Status:Home with No Needs Medically Cleared to Leave: Discharge Date:08/26/2017 06:55 PM CM D/C Disposition:Against Medical Advice ADT D/C Disposition:Against Medical Advice Projected Discharge Date:08/26/2017 06:55 PM Transportation at D/C:Self Discharge Delay Reason: Follow-Up Date:08/26/2017 06:55 PM Discharge Slot: Final Diagnosis: Placement Information Patient Contact Information Contact Name:LEVI Relationship:Mother Address: Work Phone: City: [facility] Phone: State/[employer] Code: Email: Financial Information Financial Class: Primary Plan Desc:MEDICARE OUTPATIENT Primary Plan Number:[id number] Secondary Plan Desc:MEDICAID HEALTH FIRST PLANT CHANGER Secondary Plan Number:[id number] Assessment Information Intervention Information
--- NOTE | 2017-08-27 17:48 | ASDISCHSUM ---
Discharge Information Plan Status:Home with No Needs Medically Cleared to Leave: Discharge Date:08/26/2017 06:55 PM CM D/C Disposition:Against Medical Advice ADT D/C Disposition:Against Medical Advice Projected Discharge Date:08/26/2017 06:55 PM Transportation at D/C:Self Discharge Delay Reason: Follow-Up Date:08/26/2017 06:55 PM Discharge Slot: Final Diagnosis: Placement Information Patient Contact Information Contact Name:LEVI Relationship:Mother Address: Work Phone: City: [facility] Phone: State/[employer] Code: Email: Financial Information Financial Class: Primary Plan Desc:MEDICARE OUTPATIENT Primary Plan Number:[id number] Secondary Plan Desc:MEDICAID HEALTH FIRST HEDIS NURSE Secondary Plan Number:[id number] Assessment Information Intervention Information
== END 2017-08-26 18:55 | disposition left against medical advice (07) ==
DX: F41.9 Anxiety disorder, unspecified (principal); Z91.040 Latex allergy status

== ENCOUNTER 2017-11-16 19:59 | Emergency (ER) | payer OTHER, MEDICAID ==
--- NOTE | 2017-11-16 20:27 | EDPHY ---
H & P Time Seen by Provider: 11/16/17 20:13 HPI/ROS: Chief complaint. Pneumonia HPI. 37-year-old female presents with cough and some shortness of breath. She has been sick since October 19. A chest x-ray about a week ago showed a left lower lobe pneumonia. She was treated with antibiotics likely cephalexin as Z- Jelani as well as a home nebulizer. She has been sleeping only 2 hr at night. Today she seemed to be short of breath with walking. She has continued to have a productive cough. Her PCP considered steroids but because of the patient's history of PTSD felt that steroids probably would not be overall good for the patient. She has not had fever during this time. She took a Xanax prior to coming to the emergency department. She has been using her nebulizer and has use the nebulizer 3 times today. Normally we try to have a hearing impaired pastry sous chef come to the department. However the pastry sous chef is about an hour away. The patient agrees to talk with me as long as I write everything down which I have done. ROS Constitutional. no fever/chills, no weakness Eyes. no problems with vision ENT. no sore throat, no nasal drainage Cardiovascular. no chest pain Respiratory. Cough and shortness of breath Abdominal. no abdominal pain, no nausea/vomiting, no diarrhea . no problems urinating MS. no calf pain/swelling, no neck/back pain, no joint pain Skin. no rash Lymph. no swollen glands Neuro. no headache, no dizziness, no difficulty walking or with speech Past Medical/Surgical History: Endometriosis, ovarian cysts, PTSD, anxiety Social History: Single, nonsmoker, no alcohol Smoking Status: Never smoked Physical Exam: General Appearance: Alert well-developed female mild distress vital signs are stable. O2 saturation 96% on room air Eyes: Pupils equal and round no pallor or injection. ENT, Mouth: Mucous membranes are moist. Respiratory: No retractions. Mild inspiratory expiratory rhonchi Cardiovascular: Regular rate and rhythm. Gastrointestinal: Abdomen is soft and nontender, no masses, bowel sounds normal. Neurological: Awake and alert, sensory and motor exams grossly normal. Skin: Warm and dry, no rashes. Musculoskeletal: Neck is supple nontender. Extremities symmetrical, full range of motion. Psychiatric: Patient is oriented X 3, there is no agitation. Constitutional: Initial Vital Signs Temperature (C) 36.5 C 11/16/17 20:16 Heart Rate 83 11/16/17 20:16 Respiratory Rate 18 11/16/17 20:16 Blood Pressure 106/72 11/16/17 20:16 O2 Sat (%) 96 11/16/17 20:16 O2 Delivery Mode Room Air Allergies/Adverse Reactions: telithromycin [From KETEK] Allergy (Mild, Verified 11/16/17 20:14) Itching azithromycin [From Zithromax] Allergy (Verified 11/16/17 20:14) baclofen Allergy (Verified 11/16/17 20:14) carbamazepine [Carbamazepine] Allergy (Verified 11/16/17 20:14) chlorhexidine [From Hibiclens] Allergy (Verified 11/16/17 20:14) fluvoxamine maleate [From Luvox] Allergy (Verified 11/16/17 20:14) latex [Latex] Allergy (Verified 11/16/17 20:14) Macrolide Antibiotics Allergy (Verified 11/16/17 20:14) promethazine HCl [From Phenergan] Allergy (Verified 11/16/17 20:14) ANTI PSYCHOTICS Allergy (Uncoded 11/16/17 20:14) TRILOPHAN Allergy (Uncoded 04/22/16 21:05) Home Medications: Medication Instructions Recorded Diflucan 11/16/17 Singulair 11/16/17 Xanax 11/16/17 Medical Decision Making - Diagnostics Imaging Results: Chest x-ray interpreted by me is consistent with bronchitis but no evidence for pneumonia Procedures: Michelle olivarez ED Course/Re-evaluation: 8:50 p.m. and the hearing impaired chef head is here Re-evaluation 9:05 p.m. after breathing treatment. Patient is speaking in full sentences and listening to her lungs shows better air movement. Patient and I discussed imaging study results, treatment plan including criteria for return importance of follow-up further evaluation. She expresses understanding and agreement Differential Diagnosis: Likely that patient is having some mucous plugging and possibly some asthmatic episode with this. It appears that the pneumonia has resolved. She is not hypoxic or tachypneic - Data Points Medications Given: Discontinued Medications Albuterol/Ipratropium (Duoneb) 3 ml IH EDNOW ONE Stop: 11/16/17 20:46 Last Admin: 11/16/17 20:53 Dose: 3 ml Departure - Departure Disposition: Home, Routine, Self-Care Clinical Impression: Acute bronchitis Qualifiers: Bronchitis organism: unspecified organism Qualified Code(s): J20.9 - Acute bronchitis, unspecified Condition: Good Instructions: Acute Bronchitis (ED) Additional Instructions: Continue your nebulizers using a breathing treatment every 6 hr. Activity as tolerated. Return for worsening breathing. Recheck in 1-2 days if not continuing to improve. You may use Vistaril tonight to help you sleep Referrals: NONE *PRIMARY CARE P,. [Primary Care Provider] - As per Instructions
[2017-11-16] MEDS: IPRATROPIUM/ALBUTEROL 3 ML DEYVIAL IH ONE (20:53)
[2017-11-16 21:31] VITALS: BP 112/67; PULSE 67; RESP 16; TEMP 97.9; O2SAT 97
== END 2017-11-16 21:28 | disposition home or self-care (01) ==
DX: J20.9 Acute bronchitis, unspecified (principal); Z91.040 Latex allergy status

== ENCOUNTER 2017-12-16 17:57 | Emergency (ER) | payer OTHER, MEDICAID ==
[2017-12-16 18:30] VITALS: TEMP 98.2
--- NOTE | 2017-12-16 18:44 | EDPHY ---
General - History Smoking Status: Never smoked Time Seen by Provider: 12/16/17 18:45 Narrative: CHIEF COMPLAINT: Possible allergic reaction at Tamiflu HISTORY OF PRESENT ILLNESS: Unable to obtain a full history of present illness. Please see below MDM: 6:35 p.m. I have attempted to interview and examine the patient. She is hearing impaired and requested that I write everything down. I initially told her both vocally and in writing that I would be happy to call in the certified senior maintenance machinist or type on the computer screen for her to read, but that I did not feel comfortable or have sufficient time to write everything on paper for her. She became upset with this and informed me that she was recording our conversation. I was not aware that typing was unacceptable to her until she became too upset and verbalized this to me. After she told me this was not acceptable to her, I began writing on the paper further. She was then very upset and informed me that she was sending our conversation to someone to verify what I said. I did make a statement on her recording that I am happy to accommodate her by providing the senior maintenance machinist. I also informed her in writing that I would be happy to accommodate her by writing things down in addition to the programming manager. At this point she was very upset and demanded my name, credentials and to see the attending physician. I have written these down for. She proceeded to continue recording. We have made a phone call to the on-call senior maintenance machinist. At no point did I refuse to contact mobile designer. I had actually made request for the supervisor seaming prior to my attempt to examine the patient. 7:10 p.m. I discussed this with Dr. Alexander. We attempted to re-evaluate the patient together, but she was very upset with me. She told me that she does not want me in the room. I attempted to write down my apology to her and my miscommunication. I attempted to write down that in no way was I attempting to infringe on her rights and that I'm happy to accommodate by writing things down but she was very upset with me and demanded that I leave the room. At this time Dr. Alexander has assumed care the patient. SUPERVISION: Patient was evaluated and examined in conjunction with my secondary supervising physician as documented. We have both examined the patient. (Paolo Murray) Medical Decision Making: Patient was seen primarily by myself after initial evaluation by Soha Murray. Communication was in writing as her request. She tells me she was recently treated with Tamiflu for influenza and had her last dose a week ago on Monday. She also was prescribed inhaled steroids and she is currently still on those. She tells me she is having a problem where she says she "can not feel my body" and that she is "floating above my body" and having terrible insomnia. She thinks it is a reaction to the Tamiflu. She also has had increased emotional lability with some suicidal thoughts yesterday but none today. She still has a nonproductive cough. She stills says she feels very sick but is slowly improving. On detailed questioning she states she does not think she needs a psychiatric evaluation as she is not nearly as depressed today as yesterday and has not been suicidal at all today. She is mainly just frustrated that she can' t sleep and tried 100 mg of oral trazodone and still could not sleep last night. She says if we can just control her insomnia that she will be fine. Her vital signs are reviewed and she is not hypoxic or febrile. Pulse noted as 100, but she is recovering from illness and is upset when I see her. The patient has taken benzodiazepines in the past, but she is worried about new medications. In looking up trazodone the outpatient maximum is 400 mg a day. She wonders if she could take up to 150 mg at night for sleep if needed; I told her I thought that would be reasonable. Her influenza symptoms are actually slowly improving but she is just frustrated that she isn't completely better. Patient states she is satisfied with recommendation to increase her trazodone dosing if needed for sleep. Does not request evaluation for her ongoing respiratory illness or flu symptoms. She is able to speak in full sentences. She is not appear to have any increased work of breathing or respiratory distress. Denies suicidal ideation. Ambulatory, fluent speech. She states that a solution for her insomnia is her primary concern, and reason for coming to the emergency department today. It is certainly possible that her symptoms are medication related, I do not think it is likely she has an emergent medical condition on discharge. (Aydin Alexander) - Objective Vital Signs: Initial Vital Signs Temperature (C) 36.8 C 12/16/17 18:27 Heart Rate 100 12/16/17 18:27 Respiratory Rate 21 H 12/16/17 18:27 Blood Pressure 132/78 H 12/16/17 18:27 O2 Sat (%) 98 12/16/17 18:27 O2 Delivery Mode Room Air Allergies/Adverse Reactions: telithromycin [From KETEK] Allergy (Mild, Verified 12/16/17 18:10) Itching azithromycin [From Zithromax] Allergy (Verified 12/16/17 18:10) baclofen Allergy (Verified 12/16/17 18:10) carbamazepine [Carbamazepine] Allergy (Verified 12/16/17 18:10) chlorhexidine [From Hibiclens] Allergy (Verified 12/16/17 18:10) fluvoxamine maleate [From Luvox] Allergy (Verified 12/16/17 18:10) latex [Latex] Allergy (Verified 12/16/17 18:10) Macrolide Antibiotics Allergy (Verified 12/16/17 18:10) promethazine HCl [From Phenergan] Allergy (Verified 12/16/17 18:10) ANTI PSYCHOTICS Allergy (Uncoded 11/16/17 20:14) TRILOPHAN Allergy (Uncoded 04/22/16 21:05) Home Medications: Medication Instructions Recorded Diflucan 11/16/17 Singulair 11/16/17 Xanax 11/16/17 Departure - Departure Disposition: Home, Routine, Self-Care Clinical Impression: Insomnia Qualifiers: Insomnia type: unspecified Qualified Code(s): G47.00 - Insomnia, unspecified Medication reaction Qualifiers: Encounter type: initial encounter Qualified Code(s): T88.7XXA - Unspecified adverse effect of drug or medicament, initial encounter Condition: Good Instructions: Insomnia (ED) Additional Instructions: OK to take slightly increased dose of Trazodone for sleep; you can certainly take 150mg to sleep if needed. You can take that dose (150mg) up to twice in one day if needed. Referrals: NONE *PRIMARY CARE P,. [Primary Care Provider] - As per Instructions
[2017-12-17 04:54] VITALS: BP 126/73; PULSE 80; RESP 18; O2SAT 95
== END 2017-12-16 19:33 | disposition home or self-care (01) ==
DX: T88.7XXA Unspecified adverse effect of drug or medicament, initial encounter (principal); G47.00 Insomnia, unspecified; T50.995A Adverse effect of other drugs, medicaments and biological substances, initial encounter; Z91.040 Latex allergy status; Y82.8 Other medical devices associated with adverse incidents

== ENCOUNTER 2018-03-03 13:15 | Emergency (ER) | payer OTHER, MEDICAID ==
[2018-03-03 13:21] VITALS: BP 103/65
--- NOTE | 2018-03-03 13:53 | EDPHY ---
HPI/HX/ROS/PE/MDM Narrative: CHIEF COMPLAINT: Mental Health Evaluation HISTORY OF PRESENT ILLNESS: This patient is a 37 y/o female well known to this emergency department arriving for a mental health evaluation. The patient requests we write during this examination and interview as she has a hearing impairment. She states "I'm having a lot of PTSD symptoms, I'd like to speak to a counselor". States she doesn't have money to keep seeing her therapist so she does not currently have one. The patient's primary concerns are memory loss and weight loss of five pounds recently. She states "I don't remember the past week". Additionally, she is having flashbacks at night. The patient states she does not feel anything and her entire body feels numb. She has felt this way in the past when she is "dissociated" but usually for a less prolonged period. She is taking low dose naltrexone and her other medications as prescribed. She denies any recent changes in these. She denies any hallucinations or visual changes. She denies suicidal or homicidal ideation. No fever, chills, chest pain, shortness of breath, palpitations, vomiting, diarrhea, urinary complaints, headache, lightheadedness. REVIEW OF SYSTEMS: Aside from elements discussed in the HPI, a comprehensive 10-point review of systems was reviewed and is negative. PAST MEDICAL HISTORY: PTSD. Marni's-Danlos syndrome. Hip surgery. SOCIAL HISTORY: Lives in [place]. Single. Service dog at bedside. VITAL SIGNS: Reviewed by me GENERAL: Well-developed, well-nourished, appears frustrated. HEENT: Atraumatic. Eyes: No nystagmus. No icterus, no injection. Mouth: moist mucous membranes. No erythema or lesions. Neck: supple with no adenopathy. LUNGS: Clear to auscultation bilaterally, no wheezes, rhonchi or rales. CARDIAC: Regular rate and rhythm, no rubs, murmurs or gallops. ABDOMEN: Soft, nontender, nondistended, bowel sounds normal. BACK: No CVA tenderness. EXTREMITIES: No trauma. No edema. Range of motion is normal throughout. NEURO: Alert and oriented, grossly nonfocal. SKIN: Warm and dry, no rash. PSYCHIATRIC: Normal mentation, no agitation. Portions of this note were transcribed by a medical transcriptionist. I personally performed a history, physical exam, medical decision making, and confirmed accuracy of information the transcribed note. ED Course: 37 y/o female presents for mental health evaluation. During my interview, the patient picked up clipboard to write and became agitated and distressed over not having money to seek care and feeling she has not received appropriate care in the past. 13:48 Patient states she requested a experience design director and became very frustrated that one had not already been called. Earlier in my interview, she stated she would like to write today and did not request the presence of an boilermaker central steam plant. 13:53 The patient feels that medical interventions are not necessary, but agrees to tests required prior to mental health evaluation. She states "This is a walk-in center situation but [facility] turned me away at the door because they are in an argument with my insurance". 13:54 Called experience design director for the patient as soon as we left the room. Per charge nurse, [facility] staff reported that the patient did not present to the clinic today and may go to the walk-in clinic at any time. Case management to consult. Case management utilized boilermaker central steam plant to discuss a referral to [facility]. Patient became very upset and asked to speak to me. 15:11 Temple Meat Cutter at bedside. Patient is on the floor in the corner of the room on her laptop and states "Unless there is something in writing my family and the edi manager do not want me to risk me going there". She is becoming upset states she received she has a letter from [facility] that they will not treat her at their facility. 15:15 She is very agitated and yelling at this time. She is using profanities and appears very upset and insists she cannot get help from [facility]. 15:17 Called [facility] from patient's room. Patient is sobbing in the corner of the room, and during my conversation became quite escalated and is screaming. While I am on the phone with [facility] and trying to relay my conversation to Dalia-- via the transmission maintenance supervisor-- Dalia is upset, yelling, not communicating with us and not willing to discuss this situation with me further. Patient has walked out of the emergency department. 15:30 Spoke with staff at [facility] again, Alex. [facility] has an agency-wide restraining order against the patient and she cannot be seen at any facility or any location regardless of her mental state. Consulted with case management regarding options for this patient. 15:40 I spoke with the patient's mother. I apologized to the patient's mother that I had received information from [facility] stating that Dalia could be seen in the walk-in clinic. I explained to the mother that I had begin to address this option with Dalia, and that when she informed me that she could not be seen at [facility] I then made a call to [facility] from the room. Dalia was in the room with me as I was trying to discuss the situation with [facility]. Dalia was aware that I was trying to help sort the situation out. Dalia was aware that I wanted to speak with her again when she left the emergency department abruptly. MDM: Differential diagnosis of the patient's presenting complaint was considered including but not limited to PTSD, anxiety, depression, anger management issues , borderline personality disorder. General Time Seen by Provider: 03/03/18 13:32 Initial Vital Signs: Initial Vital Signs Temperature (C) 36.3 C 03/03/18 13:18 Heart Rate 75 03/03/18 13:18 Respiratory Rate 18 03/03/18 13:18 Blood Pressure 103/65 03/03/18 13:18 O2 Sat (%) 96 03/03/18 13:18 O2 Delivery Mode Room Air Allergies/Adverse Reactions: telithromycin [From KETEK] Allergy (Mild, Verified 03/03/18 13:23) Itching azithromycin [From Zithromax] Allergy (Verified 03/03/18 13:23) baclofen Allergy (Verified 03/03/18 13:23) carbamazepine [Carbamazepine] Allergy (Verified 03/03/18 13:23) chlorhexidine [From Hibiclens] Allergy (Verified 03/03/18 13:23) fluvoxamine maleate [From Luvox] Allergy (Verified 03/03/18 13:23) latex [Latex] Allergy (Verified 03/03/18 13:23) Macrolide Antibiotics Allergy (Verified 03/03/18 13:23) promethazine HCl [From Phenergan] Allergy (Verified 03/03/18 13:23) ANTI PSYCHOTICS Allergy (Uncoded 11/16/17 20:14) TRILOPHAN Allergy (Uncoded 04/22/16 21:05) Home Medications: Medication Instructions Recorded Diflucan 11/16/17 Singulair 11/16/17 Xanax 11/16/17 Departure - Departure Disposition: Home, Routine, Self-Care Clinical Impression: Posttraumatic stress disorder, left before evaluation completed Condition: Good Instructions: Post Traumatic Stress Disorder (ED) Additional Instructions: Patient left without receiving discharge instructions. Referrals: NONE *PRIMARY CARE P,. [Primary Care Provider] - As per Instructions Report Scribed for: Ese Garcia Report Scribed by: Elizabeth Guy Date of Report: 03/03/18 Time of Report: 15:25
--- NOTE | 2018-03-03 17:54 | ASMTCMCOM ---
CM Note CM Note Notes: CM asked to meet with patient regarding follow up with [facility] for patient request to be "seen by a counselor". See ER report for details regarding patient's presentation to the ER. I have met with patient along with a healthcare interpreter. Patient tells me that she has been told that she cannot go to [facility] beacuse of an issue with her insurance. She calls [facility] crisis line in my presence and asks them for a written statement that she can be seen by a counselor. Patient becomes very angry as she speaks and although I attempted to help clarify with [facility] that we are trying to assure follow up care for her, patient starts yelling and does not allow me to do so. As patient becomes more agitated Dr. Garcia attempted to explain to patient that we are trying to get her with a counselor and the care she is requesting. Dr. Garcia contacted Alex at [facility] (see her note) and he confirms that there is an active "restraining order" and patient is not able to seek sevices at [facility]. Dr. Garcia tells patient (with continued help of healthcare interpreter) that she is trying to determine how best to help patient as patient is screaming and demanding to see a mental health worker. Patient walks out of the ER, screaming. I have called [facility] and confirmed with Lori that patient is in fact "banned" from receiving services at their facility. Lori chow informs me that because patient now has Medicare, she would not be seen by them regardless of "ban" of services. I have contacted Leopoldo ([facility]) who confirms that [facility] can and will see patient ONLY if she is presenting with active SI and if she is following the terms of her contract for care with us/our facility. Date Signed: 03/03/2018 05:54 PM Electronically Signed By:Mary Humphreys RN
== END 2018-03-03 15:58 | disposition home or self-care (01) ==
DX: F43.10 Post-traumatic stress disorder, unspecified (principal); Z91.040 Latex allergy status

== ENCOUNTER 2018-04-05 19:01 | Emergency (ER) | payer OTHER, MEDICAID ==
[2018-04-05] MEDS ORDERED: ONDANSETRON DISINTEGRATING 4 MG TAB PO ONE (19:59)
[2018-04-05] MEDS ORDERED: LORazepam 1 MG TAB PO ONE (19:59)
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
[2018-04-05] MEDS ORDERED: LORAZEPAM 1 MG PREPACK#4 BTL TAKEHOME ONE ×2 (20:11→20:14)
[2018-04-05] MEDS ORDERED: ONDANSETRON 4MG PREPACK#2 BTL TAKEHOME ONE ×2 (20:11→20:14)
[2018-04-05 20:37] VITALS: BP 124/75
== END 2018-04-05 20:43 | disposition home or self-care (01) ==
DX: R05 Cough (principal); J45.909 Unspecified asthma, uncomplicated; Z91.040 Latex allergy status

== ENCOUNTER 2018-09-01 16:55 | Emergency (ER) | payer OTHER, MEDICAID ==
[2018-09-01 17:30] VITALS: BP 111/73
--- NOTE | 2018-09-01 17:48 | EDPHY ---
H & P Stated Complaint: feeling nauseated and "having mental health issues" Time Seen by Provider: 09/01/18 17:17 HPI/ROS: CHIEF COMPLAINT: nausea, mental health issues Limitations: hearing impairment when stressed, needs to communicate through writing or sign language HISTORY OF PRESENT ILLNESS: 38 yo female presents with ongoing nausea and mental health issues. Long history of intermittent nausea, has tried multiple medications without relief, including Vistaril and Zofran. Now associated with watery diarrhea. She also has worsening mental health issues, including anxiety. REVIEW OF SYSTEMS: complete 10 point ROS reviewed and is negative except for the noted elements in the HPI - Personal History LMP (Females 10-55): Unknown Tetanus Vaccine Date: 05/2012 - Medical/Surgical History Hx Asthma: No Hx Chronic Respiratory Disease: No Hx Diabetes: No Hx Cardiac Disease: No Hx Renal Disease: No Hx Cirrhosis: No Hx Alcoholism: No Hx HIV/AIDS: No Hx Splenectomy or Spleen Trauma: No Other PMH: REPORTS HEARING IMPAIRMENT, mental health issues. "endometrioma" without endometriosis. Negative cholecystectomy.PTSD. anxiety, anemia. PSH: ankle sx 2001, ovarian cyst sx 2007 - Social History Smoking Status: Never smoked - Physical Exam Exam: PE: not performed, patient refuses Constitutional: Initial Vital Signs Heart Rate 81 09/01/18 17:10 Respiratory Rate 16 09/01/18 17:10 Blood Pressure 111/73 09/01/18 17:10 O2 Sat (%) 97 09/01/18 17:10 O2 Delivery Mode Room Air Allergies/Adverse Reactions: telithromycin [From KETEK] Allergy (Mild, Verified 04/05/18 19:47) Itching azithromycin [From Zithromax] Allergy (Verified 04/05/18 19:47) baclofen Allergy (Verified 04/05/18 19:47) carbamazepine [Carbamazepine] Allergy (Verified 04/05/18 19:47) chlorhexidine [From Hibiclens] Allergy (Verified 04/05/18 19:47) fluvoxamine maleate [From Luvox] Allergy (Verified 04/05/18 19:47) latex [Latex] Allergy (Verified 04/05/18 19:47) Macrolide Antibiotics Allergy (Verified 04/05/18 19:47) promethazine HCl [From Phenergan] Allergy (Verified 04/05/18 19:47) ANTI PSYCHOTICS Allergy (Uncoded 04/05/18 19:47) TRILOPHAN Allergy (Uncoded 04/22/16 21:05) Home Medications: Medication Instructions Recorded Diflucan 11/16/17 Singulair 11/16/17 Xanax 11/16/17 Ondansetron Odt [Zofran Odt 4 mg 4 mg PO Q4 PRN #12 tab 04/05/18 (*)] Medical Decision Making ED Course/Re-evaluation: I wrote down all my communication with this patient. She refused a fuel efficient automobile designer. The interview was seemingly going well, but then the patient began complaining of staff acting appropriately towards her. I was unable to redirect her attention to her current complaints of nausea and increased mental health problems. She wrote at least 2 pages of complaints about staff. I asked her to take off her jacket so that I could examine her, but she refused to remove her jacket for an exam. Mental health contacted and they will see her. Ultimately, her behavior continued to escalate. She was escorted out of the ED by security according to her care plan. Departure - Departure Disposition: Against Medical Advice Clinical Impression: Nausea, PTSD (post-traumatic stress disorder) Condition: Good Instructions: Post Traumatic Stress Disorder (ED), Acute Nausea and Vomiting ( ED) Referrals: Ramu Rubio MD [Medical Doctor] - As per Instructions
== END 2018-09-01 18:12 | disposition left against medical advice (07) ==
DX: R11.0 Nausea (principal); F43.10 Post-traumatic stress disorder, unspecified; F41.9 Anxiety disorder, unspecified; H91.90 Unspecified hearing loss, unspecified ear

== ENCOUNTER 2019-01-28 05:32 | Emergency (ER) | payer OTHER, MEDICAID ==
[2019-01-28 05:48] VITALS: BP 106/79
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
== END 2019-01-28 06:11 | disposition home or self-care (01) ==
LOC: EDUNIT#
DX: T54.3X1A Toxic effect of corrosive alkalis and alkali-like substances, accidental (unintentional), initial encounter (principal); R11.2 Nausea with vomiting, unspecified; R19.7 Diarrhea, unspecified

== ENCOUNTER 2019-03-21 11:51 | Emergency (ER) | payer OTHER, MEDICAID | END 2019-03-21 16:35 | disposition home or self-care (01) ==